=== PATIENT | female | born 1945 | race Caucasian/White ===

== ENCOUNTER → 2017-02-25 | Outpatient (CLI) | payer OTHER, MEDICARE ==
[~2017-02-25] MED LIST: IBUP-103 PO; IBUP-1050 PO; IMD/2 PO; MULT-610 PO; MULT-884 PO; ONDA8TAB6 PO; POLY335019 PO; PRED1SUS3 OPR; PROM25TA9 PO; SENN-61 PO; SULF800T23 PO
--- NOTE | 2017-02-26 12:46 | MAMMOGRAPHY REPORT ---
BILATERAL DIGITAL SCREENING MAMMOGRAM TOMOSYNTHESIS WITH CAD: 02/25/2017 CLINICAL HISTORY: Routine screening. Patient has no complaints. TECHNIQUE: Breast tomosynthesis in addition to standard 2D mammography was performed. Current study was also evaluated with a Computer Aided Detection (CAD) system. COMPARISON: Comparison is made to exams dated: 02/22/2016 mammogram, 02/16/2015 mammogram, 02/12/2014 ma mmogram, 02/11/2013 mammogram, 02/11/2012 mammogram, and 02/07/2011 mammogram - [facility] nter. BREAST COMPOSITION: There are scattered areas of fibroglandular density in both breasts. FINDINGS: There are stable asymmetries bilaterally. No suspicious mass, architectural distortion or cluster of suspicious microcalcifications is seen. IMPRESSION: ACR BI-RADS CATEGORY 1: NEGATIVE There is no mammographic evidence of malignancy. A 1 year screening mammogram is recommended. The pa tient will receive written notification of the results. Approximately 10% of breast cancers are not detected with mammography. A negative mammographic report should not delay biopsy if a clinically suggestive mass is present. Nay Still M.D. ay/:02/25/2017 16:51:37 Radiology Therapist: Maksim MOLINA(Venita)(M), [facility] letter sent: Normal 1/2 BI-RADS Code: ACR BI-RADS Category 1: Negative
== END | disposition home or self-care (01) ==
LOC: C.MAMM 10:42
PROVIDERS: ATTEND Internal Medicine
DX: Z12.31 Encounter for screening mammogram for malignant neoplasm of breast (principal)

== ENCOUNTER → 2017-05-31 | Outpatient (CLI) | payer OTHER, MEDICARE ==
[~2017-05-31] MED LIST changes: -PRED1SUS3 OPR; -SULF800T23 PO
[2017-05-31 12:15] LABS: BASO % 0.4 %; BASO ABS # 0.02 K/uL (0-0.2); COMPLETE YES; EOS % 5.9 %; HEMATOCRIT 34.7 % (37-47); IG% 0.4 %; LYMPH % 19.6 %; LYMPH ABS # 0.97 K/uL (1.2-3.4); MEAN CELL VOLUME 98.6 fL (80-100); MEAN CORPUSCULAR HEMOGLOBIN 32.4 pg (25-34); MEAN CORPUSCULAR HGB CONC 32.9 g/dl (32-36); MEAN PLATELET VOLUME 10.5 fL (7.4-10.4); MONO % 7.7 %; PLATELET COUNT 249 K/uL (130-400); RED BLOOD COUNT 3.52 M/uL (4.2-5.4); WHITE BLOOD COUNT 4.94 K/uL (4.8-10.8)
[2017-05-31 12:33] LABS: ALT/SGPT 19 U/L (12-78); AST/SGOT 18 U/L (15-37); BLOOD UREA NITROGEN 21 mg/dl (7-18); BUN/CREATININE RATIO 21.1 (10-20); CALCIUM 9.2 mg/dl (8.5-10.1); CARBON DIOXIDE 31 mmol/L (21-32); CHLORIDE 104 mmol/L (98-107); GLUCOSE 98 mg/dl (70-99); POTASSIUM 4.1 mmol/L (3.5-5.1); SODIUM 139 mmol/L (136-145)
[2017-05-31 12:35] LABS: ALB/GLOB RATIO 1.1 (0.9-2); ALKALINE PHOSPHATASE 91 U/L (45-117); CHOLESTEROL 229 mg/dl (0-200); CHOLESTEROL/HDL RATIO 4.4; HDL CHOLESTEROL 52 mg/dl; LDL CHOLESTEROL CALCULATED 150 mg/dl; TRIGLYCERIDES 135 mg/dl (0-150); VERY LOW DENSITY LIPOPROT CALC 27 mg/dl
== END | disposition home or self-care (01) ==
LOC: C.LABBFT 09:21
PROVIDERS: ATTEND Internal Medicine
DX: E78.00 Pure hypercholesterolemia, unspecified (principal)

== ENCOUNTER → 2017-06-12 | Outpatient (CLI) | payer OTHER, MEDICARE | END | disposition home or self-care (01) | LOC: C.LABSPEC 15:01 | PROVIDERS: ATTEND Internal Medicine | DX: Z00.00 Encounter for general adult medical examination without abnormal findings (principal) ==

== ENCOUNTER → 2017-07-10 | Day surgery (SDC) | payer OTHER, MEDICARE ==
[2017-07-02 13:23] VITALS: Ht 161.3 cm; Wt 78.6 kg
[~2017-07-10] VITALS: Ht 161.3 cm; Wt 78.6 kg
[~2017-07-10] MED LIST changes: +500ML BSS 0.3ML EPI 1:1000PF IRRIG ONE; +ACETAMINOPHEN 325 MG TAB PO PRN; +AMVISC PLUS 0.8ML SYRINGE INT OCU ONE; +ATROPINE SULFATE 0.1 MG/ML 5ML SYR IV PRN; +BSS FLUSH ONE; +ENDOCOAT 0.85ML SYRINGE INT OCU ONE; +EpHEDrine SULFATE INJ 50 MG/ML AMP IV PRN; +EpINEphrine INJ 1MG/ML AMP 1 MG/ML AMP ONE; -IBUP-1050 PO; -IMD/2 PO; +LACTATED RINGER'S 1000ML 1,000 ML IV SCH; +LIDOCAINE 4% OP SOLN DROP CHARGE ONE; +LIDOCAINE 4% OP SOLN DROP CHARGE OPR SCH; +LIDOCAINE HCL 1% MPF 2 ML VIAL ONE; +MIDAZOLAM HCL 1 MG/ML 2ML VIAL ONE; +MIX: 4ML BSS 1ML EPI 1:1000 PF TOP ONE; +MOXIFLOXACIN OPH SOLN PER DROP CHARGE ONE; -MULT-884 PO; -ONDA8TAB6 PO; +ONDANSETRON INJ 2 MG/ML 2 ML VIAL IV PRN; +ONDANSETRON INJ 2 MG/ML 2 ML VIAL ONE; -POLY335019 PO; +POVIDONE-IODINE OP SOLN 30 ML BTL ONE; +PRED1SUS3 OPR; -PROM25TA9 PO; +PROPARACAINE 0.5% OP SOLN PER DROP CHARGE OPR SCH; -SENN-61 PO; +TOBRAMYCIN/DEXAMETHASONE OPH OINT PER APPLN CHARGE ONE
--- NOTE | 2017-07-10 06:37 | History & Physical Bridge - SC ---
H&P Re-Evaluation Bridge Note: I have examined the patient, reviewed the History & Physical and in the interval since the performance of the History & Physical I have noted the following changes of clinical significance: No changes noted
[2017-07-10] MEDS: PHENYLEPHRINE HCL 2.5% OP SOLN PER DROP CHARGE OPR SCH ×3 (06:54→07:06)
[2017-07-10] MEDS: TROPICAMIDE 1% OP SOLN PER DROP CHARGE OPR SCH ×3 (06:55→07:07)
[2017-07-10] MEDS: CYCLOPENTOLATE HCL 1% OP SOLN PER DROP CHARGE OPR SCH ×3 (06:59→07:12)
[2017-07-10] MEDS: MOXIFLOXACIN OPH SOLN PER DROP CHARGE OPR SCH ×3 (07:00→07:13)
--- NOTE | 2017-07-10 07:56 | [facility] Post Operative Brief Note ---
Immediate Operative Summary Operative Date Jul 10, 2017. Pre-Operative Diagnosis Cataract Right Eye Post-Operative Diagnosis Same Procedure(s) Performed Right Cataract Phacoemulsification With Intraocular Lens Implant Surgeon Dr. Tamez Multimedia Artist Surgeon(s) None Estimated Blood Loss 0 Findings right cataract Specimens None Complication(s) None Disposition
--- NOTE | 2017-07-10 07:57 | [facility] Operative Report ---
Operative Report Date of Service Jul 10, 2017. Operative Report DATE OF OPERATION: 07/10/17 PREOPERATIVE DIAGNOSIS: Senile nuclear cataract, right eye POSTOPERATIVE DIAGNOSIS: Senile nuclear cataract, right eye PROCEDURE PERFORMED: Phacoemulsification with intraocular lens implantation, right eye SURGEON: Dr. Julian Tamez ANESTHESIA: Topical with 1% intracameral lidocaine and monitored anesthesia care COMPLICATIONS: None DESCRIPTION OF PROCEDURE: After positively identifying the patient both verbally and by wristband in the preoperative area, the right eye was marked as the operative eye. The patient was then brought back to the operating room by the anesthesia and nursing staff where they were given a drop of Lidocaine and betadine into the operative eye. They were then sterilely prepped and draped in the standard fashion typical for ophthalmic surgery. Steri-strips were placed along the upper eyelids to keep the lashes back, and a lid speculum was placed into the operative eye. At this point, a documented time out was performed with members of the ophthalmology, nursing, and anesthesia staffs all agreeing upon the correct patient, correct location for surgery, correct procedure, and correct type and power of intraocular lens to be implanted. The microscope was then swung into position. First, a paracentesis wound was made using a sideport blade. Then, in sequence, 1% preservative-free lidocaine followed by Endocoat viscoelastic was injected into the anterior chamber. Next , the main incision was made with a keratome blade in triplanar fashion. A sharp cystotome was introduced into the eye and used to create a tear in the anterior capsule, which was directed into a continuous curvilinear capsulorrhexis using Utrata forceps. Hydrodissection was then performed with BSS on a flat-tip cannula. Next, the phacoemulsification handpiece was introduced into the eye and used to remove the nucleus in a [id number] fashion. This was done without complication and then the irrigation-aspiration handpiece was introduced into the eye and used to remove all remaining cortical and epinuclear material. Amvisc was then injected into the anterior chamber as well as into the capsular bag and using the lens injector system, an MX60 23.5 D lens, serial number [id number], and expiration date 01/2020 was injected into the capsular bag and rotated into the correct position. Next, the irrigation- aspiration handpiece was used to remove all remaining Amvisc. BSS was used to hydrate the main wound, and then BSS was injected into the paracentesis site to reach physiologic pressure and then the main wound was checked and found to be watertight. The patient was given drops of Vigamox and Tobradex ointment into the operative eye, and then the surrounding area was cleaned and dried. A clear plastic shield was placed over the eye and the patient was then sat up and taken from the operating room by the anesthesia staff having tolerated the procedure well and suffering no complications. DISPOSITION: The patient was returned to the recovery room in stable condition. I attest to the content of the Intraoperative Record and any orders documented therein. Any exceptions are noted below.
[2017-07-10 07:58] VITALS: TEMP 36.3
--- NOTE | 2017-07-10 07:58 | Discharge Instructions-SurgCtr ---
Discharge Instructions Date of Service Jul 10, 2017. Visit Reason for Visit: Cataract Right Eye Discharge Discharge Diagnosis / Problem: right cataract Discharge Goals Goal(s): Decrease discomfort, Improve function Activity Recommendations Activity Limitations: as noted below Anesthesia . Post Anesthesia Instructions: If you have had General Anesthesia or IV Sedation: * Do not drive today. * Resume driving when surgeon permits. * Do not make important decisions or sign legal documents today. * Call surgeon for: 1. Temperature elevations greater than 101 degrees F. 2. Uncontrollable pain. 3. Excessive bleeding. 4. Persistent nausea and vomiting. 5. Medication intolerance (nausea, vomiting or rash). * For nausea and vomiting use only clear liquids such as: tea, soda, bouillon until nausea subsides, then gradually increase diet as tolerated. * If you have any concerns or questions, call your surgeon's office. If physician is unavailable and it is an emergency, call 911 or go to the nearest emergency room. . Instructions / Follow-Up Instructions / Follow-Up ACTIVITY RECOMMENDATIONS: * Light activities. * You may walk outside, read, watch television. * You may notice redness on the white part of the eye and some blurry vision - this is normal. MEDICATIONS: Resume previous medications unless instructed otherwise by your surgeon. Start all eye drops at 10 am today: * Eye drops (today): Prednisone - one drop in operative eye every 2 hours while awake Ofloxacin - one drop in operative eye every 2 hours while awake Bromfenac - one drop in operative eye daily SPECIAL CARE INSTRUCTIONS: * Tape plastic shield over eye to sleep at night. Call your doctor at with any concerns or problems. FOLLOW UP VISIT: Follow-up with Dr Tamez at [facility] office as scheduled. Diet Recommendations Home Diet: no limitations Procedures Procedures Performed: Right Cataract Phacoemulsification With Intraocular Lens Implant Pending Studies Studies pending at discharge: no Medical Emergencies . Who to Call and When: Medical Emergencies: If at any time you feel your situation is an emergency, please call 911 immediately. . Non-Emergent Contact Non-Emergency issues call your: Surgeon . . "Provider Documentation" section prepared by Julian Tamez. .
--- NOTE | 2017-07-10 08:16 | Anesthesia Progress Nt - [facility] ---
Anesthesia Post Op Note Date & Time Jul 10, 2017 at 08:16 Vital Signs Pain Intensity: 0 Vital Signs Past 12 Hours Date Time Temp Pulse Resp B/P (MAP) Pulse Ox O2 Delivery O2 Flow Rate FiO2 07/10/17 07:58 36.3 69 16 115/74 (88) 99 Room Air 07/10/17 06:42 36.6 89 18 116/64 (81) 98 Room Air Notes Mental Status: alert / awake / arousable, participated in evaluation Pt Amnestic to Procedure: Yes Nausea / Vomiting: adequately controlled Pain: adequately controlled Airway Patency, RR, SpO2: stable & adequate BP & HR: stable & adequate Hydration State: stable & adequate Anesthetic Complications: no major complications apparent
[2017-07-10 08:25] VITALS: BP 110/72; PULSE 70; O2SAT 98
== END | disposition home or self-care (01) ==
LOC: X.SURG 06:24
PROVIDERS: ATTEND Ophthalmology
DX: H25.11 Age-related nuclear cataract, right eye (principal); E66.9 Obesity, unspecified; Z85.42 Personal history of malignant neoplasm of other parts of uterus; Z88.1 Allergy status to other antibiotic agents; Z96.659 Presence of unspecified artificial knee joint

== ENCOUNTER → 2017-07-22 | Outpatient (CLI) | payer OTHER, MEDICARE ==
[~2017-07-22] MED LIST changes: -500ML BSS 0.3ML EPI 1:1000PF IRRIG ONE; -ACETAMINOPHEN 325 MG TAB PO PRN; -AMVISC PLUS 0.8ML SYRINGE INT OCU ONE; -ATROPINE SULFATE 0.1 MG/ML 5ML SYR IV PRN; -BSS FLUSH ONE; -ENDOCOAT 0.85ML SYRINGE INT OCU ONE; -EpHEDrine SULFATE INJ 50 MG/ML AMP IV PRN; -EpINEphrine INJ 1MG/ML AMP 1 MG/ML AMP ONE; -LACTATED RINGER'S 1000ML 1,000 ML IV SCH; -LIDOCAINE 4% OP SOLN DROP CHARGE ONE; -LIDOCAINE 4% OP SOLN DROP CHARGE OPR SCH; -LIDOCAINE HCL 1% MPF 2 ML VIAL ONE; -MIDAZOLAM HCL 1 MG/ML 2ML VIAL ONE; -MIX: 4ML BSS 1ML EPI 1:1000 PF TOP ONE; -MOXIFLOXACIN OPH SOLN PER DROP CHARGE ONE; -ONDANSETRON INJ 2 MG/ML 2 ML VIAL IV PRN; -ONDANSETRON INJ 2 MG/ML 2 ML VIAL ONE; -POVIDONE-IODINE OP SOLN 30 ML BTL ONE; -PRED1SUS3 OPR; -PROPARACAINE 0.5% OP SOLN PER DROP CHARGE OPR SCH; +SULF800T23 PO; -TOBRAMYCIN/DEXAMETHASONE OPH OINT PER APPLN CHARGE ONE
== END | disposition home or self-care (01) ==
LOC: C.LABBFT 12:48
PROVIDERS: ATTEND Physician Assistant Medical
DX: H61.20 Impacted cerumen, unspecified ear (principal)

== ENCOUNTER → 2017-08-12 | Outpatient (CLI) | payer OTHER, MEDICARE | END | disposition home or self-care (01) | LOC: C.LABBFT 10:53 | PROVIDERS: ATTEND Obstetrics & Gynecology | DX: Z85.42 Personal history of malignant neoplasm of other parts of uterus (principal) ==

== ENCOUNTER 2017-10-20 14:14 | Emergency (ER) | payer OTHER, MEDICARE ==
[~2017-10-20] VITALS: Ht 161.3 cm; Wt 78.0 kg
[2017-10-20 14:38] VITALS: TEMP 36.6; Ht 161.3 cm; Wt 78.0 kg
[2017-10-20] MEDS ORDERED: SODIUM CHLORIDE 0.9% 1000ML 1,000 ML IV STA ×2 (15:54→17:25)
[2017-10-20] MEDS ORDERED: ONDANSETRON 8 MG/54 ML D5W IV STA (15:54)
--- NOTE | 2017-10-20 16:00 | EMERGENCY ROOM VISIT NOTE ---
History Report prepared by Jv: Harshad Swenson Under the Supervision of: Tisha RandhawaO. First contact with patient: 15:27 Chief Complaint: VOMITING Stated Complaint: FLU LIKE SYMPTOMS Nursing Triage Summary: see triage note History of Present Illness The patient is a 72 year old female who presents to the Emergency Room with complaints of vomiting and light headedness starting this morning. She decided to go back to bed and did not eat or drink anything today. The patient states that she is feeling like she was going to pass out, and as the day went on she became more nauseous. She states that she has been dry heaving and vomiting a little bit up since she has not eaten very much today. She additionally states that she has had three episodes of diarrhea with no hematochezia. She denies any abdominal pain, chest pain, palpitations, shortness of breath, cough, recent cold symptoms, rashes, headache, blurry vision, double vision, and ear ringing. The patient states that she has not lost consciousness, and she states that she has had the chills since this morning. She has not been around anyone sick recently. Denies new foods, travel, change in meds. Source of History: patient Onset: this morning Position: other (global) Quality: other (vomiting and light headed) Timing: other (persistent) Associated Symptoms: + chills, + nausea, + vomiting, + diarrhea, No LOC, No headache, No cough, No chest pain, No SOB, No abdominal pain, No rash Review of Systems See HPI for pertinent positives & negatives. A total of 10 systems reviewed and were otherwise negative. Past Medical & Surgical Medical Problems: (1) Uterine cancer Surgical Problems: (1) H/O: hysterectomy Social History Smoking Status: Never Smoker Marital Status: Occupation Status: retired Current/Historical Medications Scheduled Cephalexin (Keflex), 1 CAP PO BID Multiple Vitamins W/ Minerals (Centrum Adults), 1 TAB PO QAM Scheduled PRN Ibuprofen Tab (Advil), 200 MG PO HS PRN for Pain Allergies Coded Allergies: Amoxicillin (Verified Allergy, Intermediate, Hives, 10/20/17) Physical Exam Vital Signs Date Time Temp Pulse Resp B/P (MAP) Pulse Ox O2 Delivery O2 Flow Rate FiO2 10/20/17 19:45 92 18 140/79 98 Room Air 10/20/17 18:59 90 128/73 102 138/82 99 140/79 10/20/17 17:08 84 18 134/71 97 Room Air 10/20/17 14:38 36.6 87 16 119/70 96 Room Air Physical Exam GENERAL: alert, well appearing, well nourished, no distress, non-toxic EYE EXAM: normal conjunctiva, PERRL and EOM's grossly intact OROPHARYNX: no exudate, no erythema, lips, buccal mucosa, and tongue normal and mucous membranes are very dry. NECK: supple, no nuchal rigidity, no adenopathy, non-tender LUNGS: Clear to auscultation. Normal chest wall mechanics, no w/r/r HEART: no murmurs, S1 normal and S2 normal ABDOMEN: abdomen soft, non-tender, normo-active bowel sounds, no masses, no rebound or guarding. BACK: Back is symmetrical on inspection and there is no deformity, no midline tenderness, no CVA tenderness. SKIN: no rashes and no bruising UPPER EXTREMITIES: upper extremities are grossly normal. LOWER EXTREMITIES: Bilateral vertical midline incisions over the knees consistent with knee replacements. No pitting edema. NEURO EXAM: Normal sensorium, cranial nerves II-XII intact, normal speech, no weakness of arms, no weakness of legs. No drift. Finger to nose intact. Sensation intact. Medical Decision & Procedures ER Provider Diagnostic Interpretation: Radiology results have been interpreted by the radiologist and reviewed by me. CHEST AND ABDOMEN 2 VIEWS HISTORY: Nausea. Vomiting. Diarrhea. COMPARISON: Chest abdomen and pelvis CT 03/12/2016. FINDINGS: The lungs are clear. The cardiomediastinal silhouette is within normal limits. There is no pneumoperitoneum or pneumatosis. The bowel gas pattern is unremarkable. No evidence for bowel obstruction. No renal or ureteral calculi. IMPRESSION: No acute cardiopulmonary process. No evidence for bowel obstruction. Electronically signed by: Dean Sifuentes M.D. 10/20/2017 4:49 PM Dictated Date/Time: 10/20/2017 4:48 PM Laboratory Results 10/20/17 16:10 Red Blood Count 3.65, Mean Corpuscular Volume 96.7, Mean Corpuscular Hemoglobin 32.3, Mean Corpuscular Hemoglobin Concent 33.4, Mean Platelet Volume 9.9, Neutrophils (%) (Auto) 91.2, Lymphocytes (%) (Auto) 5.3, Monocytes (%) (Auto) 2.9, Eosinophils (%) (Auto) 0.1, Basophils (%) (Auto) 0.1, Neutrophils # (Auto) 7.82, Lymphocytes # (Auto) 0.45, Monocytes # (Auto) 0.25, Eosinophils # (Auto) 0.01, Basophils # (Auto) 0.01 10/20/17 16:10 Test 10/20/17 16:10 10/20/17 16:36 10/20/17 19:00 White Blood Count 8.57 K/uL (4.8-10.8) Red Blood Count 3.65 M/uL (4.2-5.4) Hemoglobin 11.8 g/dL (12.0-16.0) Hematocrit 35.3 % (37-47) Mean Corpuscular Volume 96.7 fL (80-100) Mean Corpuscular Hemoglobin 32.3 pg (25-34) Mean Corpuscular Hemoglobin Concent 33.4 g/dl (32-36) Platelet Count 259 K/uL (130-400) Mean Platelet Volume 9.9 fL (7.4-10.4) Neutrophils (%) (Auto) 91.2 % Lymphocytes (%) (Auto) 5.3 % Monocytes (%) (Auto) 2.9 % Eosinophils (%) (Auto) 0.1 % Basophils (%) (Auto) 0.1 % Neutrophils # (Auto) 7.82 K/uL (1.4-6.5) Lymphocytes # (Auto) 0.45 K/uL (1.2-3.4) Monocytes # (Auto) 0.25 K/uL (0.11-0.59) Eosinophils # (Auto) 0.01 K/uL (0-0.5) Basophils # (Auto) 0.01 K/uL (0-0.2) RDW Standard Deviation 45.8 fL (36.4-46.3) RDW Coefficient of Variation 13.0 % (11.5-14.5) Immature Granulocyte % (Auto) 0.4 % Immature Granulocyte # (Auto) 0.03 K/uL (0.00-0.02) Urine Color DK YELLOW Urine Appearance TURBID (CLEAR) Urine pH 5.0 (4.5-7.5) Urine Specific [place] 1.026 (1.000-1.030) Urine Protein 2+ (NEG) Urine Glucose (UA) NEG (NEG) Urine Ketones 2+ (NEG) Urine Occult Blood NEG (NEG) Urine Nitrite NEG (NEG) Urine Bilirubin NEG (NEG) Urine Urobilinogen NEG (NEG) Urine Leukocyte Esterase SMALL (NEG) Urine WBC (Auto) >30 /hpf (0-5) Urine RBC (Auto) 5-10 /hpf (0-4) Urine Hyaline Casts (Auto) 0 /lpf (0-5) Urine Epithelial Cells (Auto) 10-20 /lpf (0-5) Urine Bacteria (Auto) NEG (NEG) Urine Crystals AMORPHOUS SEDIMENT (NONE Urine Pathogenic Casts /lpf (0) Anion Gap 8.0 mmol/L (3-11) Est Creatinine Clear Calc Drug Dose 51.3 ml/min Estimated GFR () 64.5 Estimated GFR (Non- 55.7 BUN/Creatinine Ratio 23.3 (10-20) Calcium Level 9.6 mg/dl (8.5-10.1) Magnesium Level 1.8 mg/dl (1.8-2.4) Total Bilirubin 0.4 mg/dl (0.2-1) Aspartate Amino Transf (AST/SGOT) 20 U/L (15-37) Alanine Aminotransferase (ALT/SGPT) 25 U/L (12-78) Alkaline Phosphatase 108 U/L (45-117) Total Protein 8.0 gm/dl (6.4-8.2) Albumin 3.9 gm/dl (3.4-5.0) Globulin 4.1 gm/dl (2.5-4.0) Albumin/Globulin Ratio 1.0 (0.9-2) Lipase 191 U/L (73-393) Thyroid Stimulating Hormone (TSH) 0.801 uIu/ml (0.300-4.500) Influenza Type A Antigen Neg for Influ A (NEG) Influenza Type B Antigen Neg for Influ B (NEG) Bedside Lactic Acid Venous 0.75 mmol/L (0.90-1.70) Troponin I < 0.015 ng/ml (0-0.045) Laboratory results per my review. Medications Administered Medications (Trade) Dose Ordered Sig/Ap Route Start Time Stop Time Status Last Admin Dose Admin Sodium Chloride 1,000 ml @ 999 mls/hr Q1H1M STAT IV 10/20/17 15:54 10/20/17 16:54 DC 10/20/17 16:28 999 MLS/HR Ondansetron HCl (Zofran Inj) 4 mg STK-MED ONCE .ROUTE 10/20/17 16:03 10/20/17 16:04 DC 10/20/17 16:28 4 MG Ceftriaxone Sodium (Rocephin Inj) 1 gm NOW STAT IV 10/20/17 17:14 10/20/17 17:15 DC 10/20/17 17:55 1 GM Sodium Chloride 1,000 ml @ 999 mls/hr Q1H1M STAT IV 10/20/17 17:25 10/20/17 18:25 DC 10/20/17 17:30 999 MLS/HR ECG Indication: vomiting Rate (beats per minute): 86 Rhythm: sinus rhythm Findings: RBBB, no acute ischemic change, no ectopy, other (Normal axis) Change: EKG: Patient's electrocardiogram per my interpretation. ED Course 1537: The patient was evaluated in room A12. A complete history and physical exam was performed. 1554: Sodium Chloride 1000ml @ 999 mls/hr IV 1603: Zofran 4mg IV 1714: Rocephin 1gm IV 1720: I reevaluated the patient, and she was still light headed, though she is not nauseous anymore. 1725: Sodium Chloride 1000 ml @ 999 mls/hr IV 1841: The patient is feeling better, and she is going to do orthostatics. 1945: Upon reevaluation, the patient is feeling better, and her orthostatics are normal. I discussed the findings and the treatment plan with the patient. She verbalizes agreement and understanding. She was discharged home. Medical Decision Differential diagnosis: Etiologies such as influenza, gastroenteritis, food borne illness, infections, appendicitis, diverticulitis, inflammatory bowel disease, obstruction, GI bleed , biliary pathology, as well as others were entertained. Pt much improved here with IVF. Repeat exams without any abd tenderness, no recurrent n/v, no diarrhea while being observed. Pt tolerated po. No neuro deficits and no syncope. I do not suspect MANAGER UI pathology. Trop negative x 2 and no chest pain or SOB. I do not suspect cardiac or vascular pathology. No evidence of bacteremia/sepsis. VS stable. Pt felt markedly improved, ambulating with a steady gait, asking to be discharged. Pt well appearing at time of DC. Discussed possible early UTI, doubt fulminant pyelonephritis. Culture sent. Discussed with pt sx to watch/return for, f/u with PCP, diet/ hydration, use of antibiotics, she verbalized understanding and was agreeable with plan. Medication Reconcilliation Current Medication List: was personally reviewed by me Blood Pressure Screening Patient's blood pressure: Normal blood pressure Impression Primary Impression: Nausea, vomiting, and diarrhea Additional Impressions: UTI (urinary tract infection) Dehydration Scribe Attestation The scribe's documentation has been prepared under my direction and personally reviewed by me in its entirety. I confirm that the note above accurately reflects all work, treatment, procedures, and medical decision making performed by me. Departure Information Dispostion Home / Self-Care Prescriptions Cephalexin (KEFLEX) 500 Mg Cap 1 CAP PO BID for 7 Days, #14 CAP Prov: Stella Rodriguez, 10/20/17 Referrals Yury Alarcon M.D. (PCP) Forms HOME CARE DOCUMENTATION FORM, IMPORTANT VISIT INFORMATION Patient Instructions ED Dehydration, ED Vomiting Diarrhea Nonspecific Ad, My [facility], UTI Additional Instructions Please drink plenty of water. Please take antibiotics as prescribed. Please consider using a probiotic while you're on antibiotics. If you develop any recurrent vomiting or diarrhea, develop worsening abdominal pain, or gallop fevers or chills, feels though you're going to pass out, develop increased dizziness, chest pain, trouble breathing, or unable to urinate, or you have any other new concerns, please return the emergency room. Problem Qualifiers Additional Impressions: UTI (urinary tract infection) Urinary tract infection type: acute cystitis Hematuria presence: without hematuria Qualified Codes: N30.00 - Acute cystitis without hematuria
[2017-10-20] MEDS ORDERED: ONDANSETRON INJ 2 MG/ML 2 ML VIAL ONE (16:03)
[2017-10-20 16:27] LABS: BASO % 0.1 %; BASO ABS # 0.01 K/uL (0-0.2); EOS % 0.1 %; EOS ABS # 0.01 K/uL (0-0.5); HEMATOCRIT 35.3 % (37-47); HEMOGLOBIN 11.8 g/dL (12.0-16.0); IG# 0.03 K/uL (0.00-0.02); LYMPH % 5.3 %; LYMPH ABS # 0.45 K/uL (1.2-3.4); MEAN CELL VOLUME 96.7 fL (80-100); MEAN CORPUSCULAR HEMOGLOBIN 32.3 pg (25-34); MEAN CORPUSCULAR HGB CONC 33.4 g/dl (32-36); MEAN PLATELET VOLUME 9.9 fL (7.4-10.4); MONO % 2.9 %; MONO ABS # 0.25 K/uL (0.11-0.59); NEUT % 91.2 %; NEUT ABS # 7.82 K/uL (1.4-6.5); PLATELET COUNT 259 K/uL (130-400); RED CELL DISTRIBUTION WIDTH SD 45.8 fL (36.4-46.3); WHITE BLOOD COUNT 8.57 K/uL (4.8-10.8)
[2017-10-20 16:41] LABS: ALBUMIN 3.9 gm/dl (3.4-5.0); ALT/SGPT 25 U/L (12-78); BLOOD UREA NITROGEN 24 mg/dl (7-18); CALCIUM 9.6 mg/dl (8.5-10.1); CARBON DIOXIDE 28 mmol/L (21-32); CREATININE 1.02 mg/dl (0.60-1.20); GLUCOSE 120 mg/dl (70-99); LIPASE 191 U/L (73-393); POTASSIUM 3.8 mmol/L (3.5-5.1); SODIUM 137 mmol/L (136-145)
--- NOTE | 2017-10-20 16:51 | DIAGNOSTIC IMAGING REPORT ---
CHEST AND ABDOMEN 2 VIEWS HISTORY: Nausea. Vomiting. Diarrhea. COMPARISON: Chest abdomen and pelvis CT 03/12/2016. FINDINGS: The lungs are clear. The cardiomediastinal silhouette is within normal limits. There is no pneumoperitoneum or pneumatosis. The bowel gas pattern is unremarkable. No evidence for bowel obstruction. No renal or ureteral calculi. IMPRESSION: No acute cardiopulmonary process. No evidence for bowel obstruction. Electronically signed by: Dean Sifuentes M.D. 10/20/2017 4:49 PM Dictated Date/Time: 10/20/2017 4:48 PM
[2017-10-20 16:52] LABS: ALKALINE PHOSPHATASE 108 U/L (45-117); AST/SGOT 20 U/L (15-37)
[2017-10-20 17:06] LABS: INFLUENZA B ANTIGEN Neg for Influ B (NEG)
[2017-10-20] MEDS ORDERED: CEFTRIAXONE SOD INJ 1 GM ADDVIAL IV STA (17:14)
[2017-10-20 19:45] VITALS: BP 140/79; PULSE 92; O2SAT 98
[2017-10-20] MEDS ORDERED: CEPH-571 PO (19:51)
== END 2017-10-20 19:54 | disposition home or self-care (01) ==
LOC: C.EDB 14:17 → C.EDA 19:54
DX: E86.0 Dehydration (principal); N39.0 Urinary tract infection, site not specified; Z85.42 Personal history of malignant neoplasm of other parts of uterus; Z90.710 Acquired absence of both cervix and uterus; Z96.653 Presence of artificial knee joint, bilateral

== ENCOUNTER → 2017-10-23 | Outpatient (CLI) | payer OTHER, MEDICARE ==
[~2017-10-23] MED LIST changes: +CEPH-571 PO; -SULF800T23 PO
== END | disposition home or self-care (01) ==
LOC: C.LABBFT 11:23
PROVIDERS: ATTEND Nurse Practitioner
DX: N39.0 Urinary tract infection, site not specified (principal)

== ENCOUNTER → 2017-12-25 | Day surgery (SDC) | payer OTHER, MEDICARE ==
[2017-12-09 15:03] VITALS: BMI 29.0
[~2017-12-25] VITALS: Ht 162.6 cm; Wt 77.3 kg
[~2017-12-25] MED LIST changes: -CEPH-571 PO; +LIDOCAINE HCL 2% 2 ML VIAL (20MG/ML) ONE; +PROPOFOL IV EMULSION 10 MG/ML 20 ML VIAL IV ONE; +SODIUM CHLORIDE 0.9% 500ML 500 ML IV ONE
[2017-12-25 10:04] VITALS: Ht 162.6 cm; Wt 77.3 kg
--- NOTE | 2017-12-25 10:15 | Endo History and Physical ---
History & Physical Date of Service: Dec 25, 2017. Chief Complaint: SCREENING Referring Physician: DR. CASANOVA History of Present Illness 72 yo CF who presents for screening colonoscopy. Past Medical History Cancer Past Surgical History Hx Cardiac Surgery: No Hx Internal Defibrillator: No Hx Pacemaker: No Hx Abdominal Surgery: No Hx of Implantable Prosthesis: No Hx Post-Op Nausea and Vomiting: No Hx Cancer Surgery: Yes (TAHBSO) Hx Thoracic Surgery: No Hx Orthopedic: Yes (RT/LEFT KNEE ARTHROSCOPY, BILAT TKA) Hx Urinary Tract Surgery: No Family History None Social History Smoking Status: Never Smoker Hx Substance Use: No Hx Alcohol Use: No Allergies Coded Allergies: Amoxicillin (Verified Allergy, Intermediate, Hives, 12/25/17) Current Medications Reported Home Medications Medications Dose Route/Sig Max Daily Dose Days Date Category Advil (Ibuprofen) 200 Mg Tab 200 Mg PO HS PRN 07/02/17 Reported Centrum Adults (Multiple Vitamins W/ Minerals) 1 Tab Tab 1 Tab PO QAM 07/02/17 Reported Vital Signs Weight (Kilograms): 77.27 Height (Feet): 5 Height (Inches): 4 Date Time Temp Pulse Resp B/P (MAP) Pulse Ox O2 Delivery O2 Flow Rate FiO2 12/25/17 10:09 36.7 95 18 120/70 (87) 96 Room Air Physical Exam General Appearance: WD/WN, no apparent distress Respiratory/Chest: Auscultation: breath sounds normal Cardiovascular: Heart Auscultation: RRR Abdomen: Bowel Sounds: normal Inspection & Palpation: soft, non-distended, no tenderness, guarding & rebound Assessment and Plan Assessment: 72 yo CF who presents for screening colonoscopy. Plan: Proceed with colonoscopy.
--- NOTE | 2017-12-25 11:07 | Discharge Instructions ---
Endoscopy Patient Instructions Date / Procedure(s) Performed Dec 25, 2017. Colonoscopy Allergy Information Coded Allergies: Amoxicillin (Verified Allergy, Intermediate, Hives, 12/25/17) Discharge Date / Findings Dec 25, 2017. Colon polyp Diverticulosis Internal hemorrhoids Medication Instructions OK to resume all medications today as prescribed Reported Home Medications Medications Dose Route/Sig Max Daily Dose Days Date Category Advil (Ibuprofen) 200 Mg Tab 200 Mg PO HS PRN 07/02/17 Reported Centrum Adults (Multiple Vitamins W/ Minerals) 1 Tab Tab 1 Tab PO QAM 07/02/17 Reported Provider Instructions Activity Restrictions - No exercising or heavy lifting for 24 hours. - Do not drink alcohol the day of the procedure. - Do not drive a car or operate machinery until the day after the procedure. - Do not make any important decisions or sign important papers in 24 hours after the procedure. Following Day: - Return to full activity which may include returning to work/school. Diet Start your diet with liquids and light foods (jello, soup, juice, toast). Then eat your usual diet if not nauseated. Treatment For Common After Affects For mild abdominal pain, bloating, or excessive gas: - Rest - Eat lightly - Lie on right side Follow-Up Information Follow-up with DR. CASANOVA as scheduled Anesthesia Information What You Should Know You have had a procedure that required some medicine to reduce anxiety and discomfort. This treatment is called moderate sedation. After receiving the treatment, you may be sleepy, but you will be able to breathe on your own. The effects of the treatment may last for several hours. Follow these instructions along with Activity/Diet recommendations noted above: * Do NOT do anything where dizziness or clumsiness would be dangerous. * Rest quietly at home today, then you can be up and about tomorrow. * Have a responsible person stay with you the rest of today. * You may have had an I.V. today. If so, you may take the dressing off later today. Recommendations Call your doctor if: * Trouble breathing * Continuous vomiting for more than 24 hours * Temperature above 101 degrees * Severe abdominal pain or bloating * Pain not relieved by pain medicine ordered * There is increased drainage or redness from any incision * A large amount of rectal bleeding greater than 2-3 tablespoons. (If you had a polyp/s removed or have hemorrhoids, a small amount of blood - from the rectum is to be expected.) * You have any unanswered questions or concerns. IN THE EVENT OF A SERIOUS EMERGENCY, GO TO THE NEAREST EMERGENCY ROOM Your discharge instructions were prepared by provider Uzair Boyer. Patient Instructions Signature Page Josefina Delgado Patient (or Guardian) Signature/Date: I have read and understand the instructions given to me by my caregivers. Caregiver/RN/Doctor Signature/Date: The above-named patient and/or guardian has received patient instructions on this date. + Original Patient Signature Page (only) stays with chart. Please make copy for patient.
--- NOTE | 2017-12-25 11:14 | GI REPORT ---
Procedure Date: 12/25/2017 10:23 AM Procedure: Colonoscopy Indications: Screening for colorectal malignant neoplasm Medicines: Monitored Anesthesia Care Complications: No immediate complications. Estimated Blood Loss: Estimated blood loss: none. Procedure: Pre-Anesthesia Assessment: - Prior to the procedure, a History and Physical was performed, and patient medications and allergies were reviewed. The patient's tolerance of previous anesthesia was also reviewed. The risks and benefits of the procedure and the sedation options and risks were discussed with the patient. All questions were answered, and informed consent was obtained. Prior Anticoagulants: The patient has taken no previous anticoagulant or antiplatelet agents. ASA Grade Assessment: II - A patient with mild systemic disease. After reviewing the risks and benefits, the patient was deemed in satisfactory condition to undergo the procedure. After I obtained informed consent, the scope was passed under direct vision. Throughout the procedure, the patient's blood pressure, pulse, and oxygen saturations were monitored continuously. The scope was introduced through the anus and advanced to the terminal ileum. The colonoscopy was performed without difficulty. The patient tolerated the procedure well. The quality of the bowel preparation was good. The terminal ileum, ileocecal valve, appendiceal orifice, and rectum were photographed. Findings: The perianal and digital rectal examinations were normal. A 25 mm polyp was found in the sigmoid colon. The polyp was pedunculated. The polyp was removed with a hot snare. Resection and retrieval were complete. To prevent bleeding after the polypectomy, one hemostatic clip was successfully placed (MR conditional). There was no bleeding at the end of the procedure. Multiple small-mouthed diverticula were found in the sigmoid colon. Non-bleeding internal hemorrhoids were found during retroflexion. The hemorrhoids were small. Impression: - One 25 mm polyp in the sigmoid colon, removed with a hot snare. Resected and retrieved. Clip (MR conditional) was placed. - Diverticulosis in the sigmoid colon. - Non-bleeding internal hemorrhoids. Recommendation: - Resume previous diet. - Continue present medications. - Repeat colonoscopy for surveillance based on pathology results. - Return to primary care physician as previously scheduled. Uzair Boyer DO 12/25/2017 11:14:01 AM This report has been signed electronically. Note Initiated On: 12/25/2017 10:23 AM I attest to the content of the Intraoperative Record and orders documented therein, exceptions below
--- NOTE | 2017-12-25 11:20 | Anesthesiology Progress Note ---
Anesthesia Post Op Note Date & Time Dec 25, 2017 at 11:20 Vital Signs Pain Intensity: 0 Vital Signs Past 12 Hours Date Time Temp Pulse Resp B/P (MAP) Pulse Ox O2 Delivery O2 Flow Rate FiO2 12/25/17 11:16 75 16 103/63 (76) 97 Room Air 12/25/17 11:10 75 16 97/58 (71) 97 Room Air 12/25/17 11:01 77 16 89/61 (70) 95 Room Air 12/25/17 10:09 36.7 95 18 120/70 (87) 96 Room Air Notes Mental Status: alert / awake / arousable, participated in evaluation Pt Amnestic to Procedure: Yes Nausea / Vomiting: adequately controlled Pain: adequately controlled Airway Patency, RR, SpO2: stable & adequate BP & HR: stable & adequate Hydration State: stable & adequate Anesthetic Complications: no major complications apparent
[2017-12-25 11:31] VITALS: BP 106/59; PULSE 71; O2SAT 98
== END | disposition home or self-care (01) ==
LOC: C.GI 09:42
PROVIDERS: ATTEND Internal Medicine
DX: Z12.11 Encounter for screening for malignant neoplasm of colon (principal); D12.5 Benign neoplasm of sigmoid colon; K57.30 Diverticulosis of large intestine without perforation or abscess without bleeding; K64.8 Other hemorrhoids; Z96.653 Presence of artificial knee joint, bilateral; Z88.1 Allergy status to other antibiotic agents

== ENCOUNTER → 2018-02-03 | Outpatient (CLI) | payer OTHER, MEDICARE ==
[~2018-02-03] MED LIST changes: -LIDOCAINE HCL 2% 2 ML VIAL (20MG/ML) ONE; -PROPOFOL IV EMULSION 10 MG/ML 20 ML VIAL IV ONE; -SODIUM CHLORIDE 0.9% 500ML 500 ML IV ONE
== END | disposition home or self-care (01) ==
LOC: C.LABBFT 11:04
PROVIDERS: ATTEND Obstetrics & Gynecology
DX: Z85.43 Personal history of malignant neoplasm of ovary (principal)

== ENCOUNTER → 2018-02-05 | Outpatient (CLI) | payer OTHER, MEDICARE | END | disposition home or self-care (01) | LOC: C.LABBFT 15:37 | PROVIDERS: ATTEND Internal Medicine | DX: R39.9 Unspecified symptoms and signs involving the genitourinary system (principal) ==

== ENCOUNTER → 2018-04-11 | Outpatient (CLI) | payer OTHER, MEDICARE ==
[2018-04-11 12:33] LABS: BASO % 0.5 %; BASO ABS # 0.03 K/uL (0-0.2); EOS % 3.4 %; EOS ABS # 0.21 K/uL (0-0.5); HEMATOCRIT 33.5 % (37-47); HEMOGLOBIN 11.1 g/dL (12.0-16.0); IG# 0.03 K/uL (0.00-0.02); LYMPH ABS # 0.93 K/uL (1.2-3.4); MEAN CELL VOLUME 96.3 fL (80-100); MEAN CORPUSCULAR HEMOGLOBIN 31.9 pg (25-34); MEAN CORPUSCULAR HGB CONC 33.1 g/dl (32-36); MEAN PLATELET VOLUME 10.6 fL (7.4-10.4); MONO % 7.2 %; MONO ABS # 0.45 K/uL (0.11-0.59); NEUT % 73.4 %; NEUT ABS # 4.57 K/uL (1.4-6.5); PLATELET COUNT 288 K/uL (130-400); RED CELL DISTRIBUTION WIDTH CV 13.5 % (11.5-14.5); WHITE BLOOD COUNT 6.22 K/uL (4.8-10.8)
[2018-04-11 17:58] LABS: ALBUMIN 3.6 gm/dl (3.4-5.0); ALKALINE PHOSPHATASE 104 U/L (45-117); ALT/SGPT 19 U/L (12-78); AST/SGOT 17 U/L (15-37); BLOOD UREA NITROGEN 17 mg/dl (7-18); CALCIUM 8.9 mg/dl (8.5-10.1); CARBON DIOXIDE 27 mmol/L (21-32); CREATININE 0.91 mg/dl (0.60-1.20); GLUCOSE 93 mg/dl (70-99); POTASSIUM 3.8 mmol/L (3.5-5.1); SODIUM 138 mmol/L (136-145); TOTAL PROTEIN 7.3 gm/dl (6.4-8.2); TRANSFERRIN 201 mg/dl (200-360)
== END | disposition home or self-care (01) ==
LOC: C.LABBFT 11:02
PROVIDERS: ATTEND Internal Medicine
DX: M79.1 Myalgia (principal); D64.9 Anemia, unspecified

== ENCOUNTER → 2018-05-15 | Outpatient (CLI) | payer OTHER, MEDICARE ==
--- NOTE | 2018-05-15 15:29 | DIAGNOSTIC IMAGING REPORT ---
L SHOULDER MIN 2 VIEWS ROUTINE CLINICAL HISTORY: 72 years-old Female presenting with M25.511 Shoulder pain, [id number] Elevated sedimentation r. TECHNIQUE: Internal rotation, external rotation, Grashey views of the left shoulder were obtained. COMPARISON: Comparison made to plain radiograph from the right shoulder performed the same day. FINDINGS: Glenohumeral and acromioclavicular joints congruent. Mild osteophytosis noted at the inferior aspect of the humeral head. Joint space in the glenohumeral joint is preserved. No subluxation of the humeral head. No advanced degenerative change of the acromioclavicular joint. No acute fracture or malalignment. Osteopenia may be present. Visualized portion of the left hemithorax normal. IMPRESSION: Mild degenerative changes of the glenohumeral joint. Allowing for suspected osteopenia, no acute osseous injury. Electronically signed by: Jaden Hill M.D. 05/15/2018 3:28 PM Dictated Date/Time: 05/15/2018 3:27 PM
--- NOTE | 2018-05-15 15:30 | DIAGNOSTIC IMAGING REPORT ---
RIGHT SHOULDER 3 VIEWS CLINICAL HISTORY: Right shoulder pain. FINDINGS: 3 views of the right shoulder are obtained. No prior studies are available for comparison at the time of dictation. The skeletal structures are osteopenic. No fracture or dislocation is identified. Mild productive change is noted at the acromioclavicular joint. The glenohumeral articulation is preserved. Mild arthritic change and sclerosis with a degenerative geode is seen in the greater tuberosity of the humeral head. No erosive disease is seen. The overlying soft tissues are within normal limits. The visualized right upper lobe lung parenchyma appears clear. IMPRESSION: Osteopenia and mild degenerative change as above. No acute bony abnormality is identified. Electronically signed by: Keven Gonzalez M.D. 05/15/2018 3:29 PM Dictated Date/Time: 05/15/2018 3:28 PM
== END | disposition home or self-care (01) ==
LOC: C.RAD1850 14:40
PROVIDERS: ATTEND Internal Medicine Rheumatology
DX: M25.511 Pain in right shoulder (principal); M25.512 Pain in left shoulder; R70.0 Elevated erythrocyte sedimentation rate; M85.811 Other specified disorders of bone density and structure, right shoulder